=== PATIENT | male | born 1995 | race American Indian/Alaskan Native ===

== ENCOUNTER 2021-08-27 08:29 | Emergency (ER) | payer OTHER ==
[2021-08-27 08:32] VITALS: BP 154/106
--- NOTE | 2021-08-27 08:52 | Emergency Department Report ---
ED Male HPI - General Chief complaint: Medical Clearance Stated complaint: STD Time Seen by Provider: 08/27/21 08:34 Source: patient Mode of arrival: Ambulatory Limitations: No Limitations - History of Present Illness Initial comments: 26 yr old male presents to ED with concern for STD. Pt reports that he recently had unprotected sexual intercourse with new partner. He states he is not having any dysuria, or penile d/c but he feels like his penis is irritated and concern he may be developing an STD. He states he has been tx for STDs in past. He d enies any testicular pain, abd pain or back pain or any other symptoms. MD Complaint: other (penile irritation ) -: days(s) - Related Data Previous Rx's Medication Instructions Recorded Last Taken Type Doxycycline Hyclate [Doxycycline 100 mg PO Q12HR #14 tab 08/27/21 Unknown Rx Hyclate TAB] Allergies Allergy/AdvReac Type Severity Reaction Status Date / Time No Known Allergies Allergy Unverified 08/27/21 08:30 ED Review of Systems ROS: Stated complaint: STD Other details as noted in HPI Comment: All other systems reviewed and negative Gastrointestinal: denies: abdominal pain, nausea, diarrhea Genitourinary: other (penile irritation ). denies: urgency, dysuria, frequency, hematuria, discharge, testicular pain, testicular mass Musculoskeletal: denies: back pain, joint swelling, arthralgia Skin: denies: rash, lesions, change in color, change in hair/nails, pruritus Neurological: denies: headache, weakness, numbness, paresthesias, confusion, abnormal gait, vertigo Psychiatric: denies: anxiety, depression, auditory hallucinations, visual hallucinations, homicidal thoughts, suicidal thoughts Hematological/Lymphatic: denies: easy bleeding, easy bruising, swollen glands ED Past Medical Hx - Past Medical History Previous Medical History?: No - Surgical History Past Surgical History?: No - Medications Home Medications: Home Medications Medication Instructions Recorded Confirmed Last Taken Type Doxycycline Hyclate [Doxycycline 100 mg PO Q12HR #14 tab 08/27/21 Unknown Rx Hyclate TAB] ED Physical Exam - General Limitations: No Limitations General appearance: alert, in no apparent distress - Head Head exam: Present: atraumatic, normocephalic, normal inspection - Eye Eye exam: Present: normal appearance, PERRL, EOMI Pupils: Present: normal accommodation - Neck Neck exam: Present: normal inspection, full ROM - Cardiovascular Cardiovascular Exam: Present: regular rate, normal rhythm, normal heart sounds - Neurological Exam Neurological exam: Present: alert, oriented X3, CN II-XII intact, normal gait - Psychiatric Psychiatric exam: Present: normal affect, normal mood - Skin Skin exam: Present: intact ED Course Vital Signs 08/27/21 08:31 Temperature 98.6 F Pulse Rate 89 Respiratory 17 Rate Blood Pressure 154/106 O2 Sat by Pulse 98 Oximetry Critical care attestation.: If time is entered above; I have spent that time in minutes in the direct care of this critically ill patient, excluding procedure time. ED Disposition Clinical Impression: Concern about STD in male without diagnosis, Penile irritation Disposition: 01 HOME / SELF CARE / HOMELESS Is pt being admited?: No Does the pt Need Aspirin: No Condition: Stable Instructions: Safe Sex Additional Instructions: Take the doxycycline as prescribed. Your partner should also get treated as well. It is important that you practice safe sex. Follow up with your PCP. Return to ED if worse. Prescriptions: Doxycycline Hyclate [Doxycycline Hyclate TAB] 100 mg PO Q12HR #14 tab Referrals: [facility] [Provider Group] - 3-5 Days Time of Disposition: 08:53
[2021-08-27] MEDS ORDERED: LIDOCAINE-MPF (1%) 10 MG/1 ML VIAL 5 ML INFILTRATI ONE (08:53)
== END 2021-08-27 09:18 | disposition home or self-care (01) ==
LOC: ED 08:29
DX: Z20.2 Contact with and (suspected) exposure to infections with a predominantly sexual mode of transmission (principal); N48.29 Other inflammatory disorders of penis
CPT/HCPCS: 96372; 99282; J0696; J3490

== ENCOUNTER 2021-08-27 13:05 | Emergency (ER) | payer OTHER ==
[2021-08-27 13:22] VITALS: BP 151/92
--- NOTE | 2021-08-27 14:09 | Emergency Department Report ---
ED General Adult HPI - General Chief complaint: Medical Clearance Stated complaint: HIGH BLOOD PRESSURE Time Seen by Provider: 08/27/21 13:25 Source: patient, family Mode of arrival: Ambulatory Limitations: No Limitations - History of Present Illness Initial comments: Patient is a 26-year-old male presents emergency room due to an elevated blood pressure reading. He reports that he went to [place] to be checked in but they advised him that his blood pressure was high and that he needed to report to the emergency room. Patient denies any symptoms at all related to his blood pressure. He has not seen a primary care doctor in some time. He is currently asymptomatic. No allergies to medications. he denies any SI/HI. pts mother also wanted to speak with me with the patients permission. mother denies any SI or HI. she states he has been more manic lately and has had increased outbursts but no self harming behavior and no threats to others. she states she needed clearance for [place] due to elevated blood pressure reading. - Related Data Previous Rx's Medication Instructions Recorded Last Taken Type Doxycycline Hyclate [Doxycycline 100 mg PO Q12HR #14 tab 08/27/21 Unknown Rx Hyclate TAB] Allergies Allergy/AdvReac Type Severity Reaction Status Date / Time No Known Allergies Allergy Unverified 08/27/21 08:30 ED Review of Systems ROS: Stated complaint: HIGH BLOOD PRESSURE Other details as noted in HPI Comment: All other systems reviewed and negative ED Past Medical Hx - Medications Home Medications: Home Medications Medication Instructions Recorded Confirmed Last Taken Type Doxycycline Hyclate [Doxycycline 100 mg PO Q12HR #14 tab 08/27/21 Unknown Rx Hyclate TAB] ED Physical Exam - General Limitations: No Limitations General appearance: alert, in no apparent distress - Head Head exam: Present: atraumatic, normocephalic - Eye Eye exam: Present: normal appearance - ENT ENT exam: Present: mucous membranes moist - Respiratory Respiratory exam: Absent: respiratory distress, accessory muscle use - Neurological Exam Neurological exam: Present: alert, oriented X3 - Psychiatric Psychiatric exam: Present: normal affect, normal mood - Skin Skin exam: Present: warm, dry, intact ED Course Vital Signs 08/27/21 13:22 Temperature 97.9 F Pulse Rate 105 H Respiratory 18 Rate Blood Pressure 151/92 [Left] O2 Sat by Pulse 100 Oximetry ED Medical Decision Making - Medical Decision Making Patient is a 26-year-old male presents emergency room due to an elevated blood pressure reading. He reports that he went to [place] to be checked in but they advised him that his blood pressure was high and that he needed to report to the emergency room. Patient denies any symptoms at all related to his blood pressure. He has not seen a primary care doctor in some time. He is currently asymptomatic. No allergies to medications. he denies any SI/HI. pts mother also wanted to speak with me with the patients permission. mother denies any SI or HI. she states he has been more manic lately and has had increased outbursts but no self harming behavior and no threats to others. she states she needed clearance for [place] due to elevated blood pressure reading. vss. BP is 151/92. pt is asymptomatic. discussed lifestyle modifications, keeping a blood pressure log, and the importance of follow up with a primary care doctor. pt has no SI, no HI, no signs of acute psychosis, he is A&Ox4, he answers questions appropriately. advised pt and pts mother Please follow-up with a primary care doctor. Eat a low-sodium diet. Please keep a blood pressure log and take this with a primary care doctor. Please stop smoking. Return to emergency room for any new or worsening symptoms Blood pressure is 151/92 during todays visit we do not start blood pressure medication in the ER with one elevated blood pressure reading, please follow up with primary care doctor to discuss elevation in blood pressure to determine if you need medication management Critical care attestation.: If time is entered above; I have spent that time in minutes in the direct care of this critically ill patient, excluding procedure time. ED Disposition Clinical Impression: Elevated blood pressure reading, Tobacco use Disposition: 01 HOME / SELF CARE / HOMELESS Is pt being admited?: No Does the pt Need Aspirin: No Condition: Stable Instructions: Preventing Hypertension, Low-Sodium Eating Plan, Steps to Quit Smoking Additional Instructions: Please follow-up with a primary care doctor. Eat a low-sodium diet. Please keep a blood pressure log and take this with a primary care doctor. Please stop smoking. Return to emergency room for any new or worsening symptoms Blood pressure is 151/92 during todays visit we do not start blood pressure medication in the ER with one elevated blood pressure reading, please follow up with primary care doctor to discuss elevation in blood pressure to determine if you need medication management Referrals: АНДРЕЙ ALVARADO MD [Staff Physician] - 3-5 Days [facility] [Provider Group] - 3-5 Days Time of Disposition: 14:07 Print Language: YEMENI
== END 2021-08-27 14:30 | disposition home or self-care (01) ==
LOC: ED 13:05
DX: R03.0 Elevated blood-pressure reading, without diagnosis of hypertension (principal); Z72.0 Tobacco use
CPT/HCPCS: 99282